=== PATIENT | female | born 1975 | race Caucasian/White ===

== ENCOUNTER 2019-03-03 22:53 | Emergency (ER) | payer OTHER ==
[~2019-03-03] VITALS: Ht 157.5 cm; Wt 80.7 kg
[2019-03-03 22:53] VITALS: BP 146/102
--- NOTE | 2019-03-03 22:53 | NUR ---
PT [facility]. TAKEN TO BED 6
--- NOTE | 2019-03-03 22:55 | NUR ---
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 EMS GAVE 324MG ASPIRIN PREHOSPTIAL. 10 PULSATING PAIN,NON-RADIATING. PT GRASPING LT BREAST. PT HYPERTENSIVE, BP 145/108. PT SEEN CRYING DUE TO PAIN. PT REPORTS PAIN DURING INHALATION AND EXPIRATION. HEART SOUNDS HAVE REGULAR RATE AND RHYMTM. O2 SATURATION AT 100% RA. PT ATTACHED TO MONITORING SYSTEM. BEDRAIL X2 UP. WILL CONTINUE TO MONITOR.
--- NOTE | 2019-03-03 23:04 | NUR ---
X-Ray at bedside.
[2019-03-03] MEDS ORDERED: NACL 0.9% 1,000 ML IV ONE (23:05)
--- NOTE | 2019-03-03 23:15 | NUR ---
BLOOD DRAWN AND TAKEN TO LAB.
[2019-03-03 23:23] LABS: BASOPHILS % (AUTO) 0.6 % (0.0-2.0); EOSINOPHILS # (AUTO) 0.2 K/uL (0-0.4); EOSINOPHILS % (AUTO) 3.2 % (0.0-4.0); HEMATOCRIT 30.8 % (36-48); HEMOGLOBIN 9.9 g/dL (12.0-16.0); LYMPHOCYTES # (AUTO) 2.9 K/uL (2.5-16.5); LYMPHOCYTES % (AUTO) 38.7 % (20.5-51.1); MEAN CORPUSCULAR HEMOGLOBIN 24 pg (27-31); MEAN CORPUSCULAR HGB CONC 32 g/dL (33-37); MEAN CORPUSCULAR VOLUME 73.4 fL (80-94); MONOCYTES # (AUTO) 0.7 K/uL (0.8-1.0); NEUTROPHILS # (AUTO) 3.6 K/uL (1.8-7.7); NEUTROPHILS % (AUTO) 48.5 % (42.2-75.2); PLATELET COUNT (AUTO) 274 K/uL (140-450); RED CELL DISTRIBUTION WIDTH 17.8 % (11.6-13.7); WHITE BLOOD COUNT (AUTO) 7.5 K/uL (4.8-10.8)
[2019-03-03 23:34] LABS: ANION GAP 13.8 (8-16); CARBON DIOXIDE 25.9 mmol/L (21-32); CREATININE 0.6 mg/dL (0.6-1.3); POTASSIUM 3.7 mmol/L (3.5-5.1)
[2019-03-03] MEDS ORDERED: MORPHINE SULFATE 2 MG/ML SYR IVP ONE (23:35)
[2019-03-03 23:40] LABS: ALBUMIN 3.4 g/dL (3.4-5.0); TOTAL BILIRUBIN 0.3 mg/dL (0.0-1.0)
--- NOTE | 2019-03-03 23:48 | NUR ---
PT AMBULATED TO THE RESTROOM. STEADY GAIT OBSERVED.
--- NOTE | 2019-03-04 00:12 | NUR ---
Dr. Angel examining patient.
[2019-03-04] MEDS ORDERED: LORazepam 2 MG/ML VIAL IVP ONE (00:15)
[2019-03-04 00:23] LABS: PROTHROMBIN TIME 9.3 secs (10.8-13.4)
[2019-03-04 00:40] VITALS: BP 121/77
--- NOTE | 2019-03-04 00:41 | NUR ---
PT LAYING IN BED, RR EVEN AND UNLABORED, PT CRYING AND MOANING INTERMITTENTLY BUT CONSOLABLE. REPORTS TOLERABLE PAIN. VSS. ALL NEEDS MET.
== END 2019-03-04 01:15 | disposition home or self-care (01) ==
LOC: MED 22:53
DX: R07.89 Other chest pain (principal); I48.91 Unspecified atrial fibrillation
CPT/HCPCS: 36415; 71045; 80053; 84484; 85025; 85610; 85730; 93005; 96374; 96375; 99284; J2060; J2270; J7030; Q0092

== ENCOUNTER 2021-10-16 09:26 | Observation (INO) | payer OTHER ==
[~2021-10-16] VITALS: Ht 153.7 cm; Wt 81.0 kg
[2021-10-16 09:28] VITALS: BP 126/72
--- NOTE | 2021-10-16 09:43 | NUR ---
PATIENT AMBULATED TO BED 4.
[2021-10-16] MEDS ORDERED: KETOROLAC 60 MG/2 ML VIAL IM ONE (10:10)
--- NOTE | 2021-10-16 10:15 | NUR ---
RADIOLOGY AT BEDSIDE.
[2021-10-16 10:42] LABS: BASOPHILS # (AUTO) 0.1 K/uL (0.00-0.22); EOSINOPHILS # (AUTO) 0.2 K/uL (0-0.4); LYMPHOCYTES # (AUTO) 1.9 K/uL (2.5-16.5); MEAN CORPUSCULAR VOLUME 59.6 fL (80-94); MONOCYTES % (AUTO) 10.4 % (1.7-9.3)
[2021-10-16 10:46] LABS: ANION GAP 9.3 (8-16); CARBON DIOXIDE 25.6 mmol/L (21-32); CREATININE 0.5 mg/dL (0.6-1.3); POTASSIUM 3.9 mmol/L (3.5-5.1)
[2021-10-16 11:06] LABS: BASOPHILS % (AUTO) 1.5 % (0.0-2.0); EOSINOPHILS % (AUTO) 4.5 % (0.0-4.0); HEMATOCRIT 23.6 % (36-48); LYMPHOCYTES % (AUTO) 35.4 % (20.5-51.1); MEAN CORPUSCULAR HEMOGLOBIN 18 pg (27-31); MEAN CORPUSCULAR HGB CONC 29 g/dL (33-37); MONOCYTES # (AUTO) 0.5 K/uL (0.8-1.0); NEUTROPHILS # (AUTO) 2.5 K/uL (1.8-7.7); NEUTROPHILS % (AUTO) 48.2 % (42.2-75.2); PLATELET COUNT (AUTO) 266 K/uL (140-450); RED BLOOD CELL COUNT(AUTO) 3.96 MIL/uL (4.20-5.40); RED CELL DISTRIBUTION WIDTH 20.7 % (11.6-13.7); WHITE BLOOD COUNT (AUTO) 5.2 K/uL (4.8-10.8)
[2021-10-16 11:10] LABS: HEMOGLOBIN 6.9 g/dL (12.0-16.0)
--- NOTE | 2021-10-16 11:43 | NUR ---
TITO SWAB SENT TO LAB
[2021-10-16 12:17] LABS: PROTHROMBIN TIME 9.3 secs (10.8-13.4)
[2021-10-16] MEDS ORDERED: MORPHINE SULFATE 4 MG/ML SYR IVP PRN (13:00)
[2021-10-16] MEDS ORDERED: MAGNESIUM OXIDE 400 MG TAB PO PRN (13:00)
[2021-10-16] MEDS ORDERED: HYDROcodone/APAP 5/325 MG 1 TAB TAB PO PRN (13:00)
[2021-10-16] MEDS ORDERED: ONDANSETRON 4 MG/2 ML VIAL IVP PRN (13:00)
[2021-10-16] MEDS ORDERED: KCL 20 MEQ/WATER INJ PREMIX 200 ML IV PRN (13:00)
[2021-10-16] MEDS ORDERED: ACETAMINOPHEN 325 MG TAB PO PRN (13:00)
[2021-10-16] MEDS ORDERED: MAG SULF 2000 MG/WATER PREMIX 50 ML IV PRN (13:00)
[2021-10-16] MEDS ORDERED: POTASSIUM CHLORIDE 10 MEQ TABER PO PRN (13:00)
--- NOTE | 2021-10-16 14:45 | NUR ---
Pt transferred to Tele via BED WITH AMINA REDMOND TO ROOM 120A.
[2021-10-16 16:20] VITALS: BP 139/84
[2021-10-16] MEDS ORDERED: hydrALAZINE 20 MG/ML VIAL IVP PRN (16:55)
--- NOTE | 2021-10-16 17:27 | NUR ---
STARTED BLOOD TRANSFUSION [id number]
[2021-10-16 20:00] VITALS: BP 109/52
[2021-10-17] VITALS: BP 136/84
[2021-10-17 04:00] VITALS: BP 100/69
[2021-10-17 05:28] LABS: BASOPHILS # (AUTO) 0.1 K/uL (0.00-0.22); BASOPHILS % (AUTO) 0.8 % (0.0-2.0); EOSINOPHILS # (AUTO) 0.1 K/uL (0-0.4); EOSINOPHILS % (AUTO) 1.7 % (0.0-4.0); HEMATOCRIT 26.2 % (36-48); HEMOGLOBIN 8.1 g/dL (12.0-16.0); LYMPHOCYTES # (AUTO) 1.3 K/uL (2.5-16.5); LYMPHOCYTES % (AUTO) 18.5 % (20.5-51.1); MEAN CORPUSCULAR HEMOGLOBIN 19 pg (27-31); MEAN CORPUSCULAR HGB CONC 31 g/dL (33-37); MEAN CORPUSCULAR VOLUME 61.4 fL (80-94); MONOCYTES # (AUTO) 0.6 K/uL (0.8-1.0); MONOCYTES % (AUTO) 8.3 % (1.7-9.3); NEUTROPHILS # (AUTO) 5.1 K/uL (1.8-7.7); NEUTROPHILS % (AUTO) 70.7 % (42.2-75.2); PLATELET COUNT (AUTO) 252 K/uL (140-450); RED BLOOD CELL COUNT(AUTO) 4.27 MIL/uL (4.20-5.40); RED CELL DISTRIBUTION WIDTH 23.2 % (11.6-13.7); WHITE BLOOD COUNT (AUTO) 7.3 K/uL (4.8-10.8)
[2021-10-17 05:42] LABS: ANION GAP 8.8 (8-16); CREATININE 0.5 mg/dL (0.6-1.3); MAGNESIUM 1.7 mg/dL (1.8-2.4); POTASSIUM 3.8 mmol/L (3.5-5.1); TOTAL BILIRUBIN 1.2 mg/dL (0.0-1.0)
[2021-10-17 07:52] VITALS: BP 112/61
--- NOTE | 2021-10-17 08:05 | NUR ---
PT IS AOX4, VSS NAD NOTED. PT AWARE OF POC, QUESTIONS/CONCERNS ANSWERED AND SAFETY MEASURES IN PLACE.
--- NOTE | 2021-10-17 09:12 | NUR ---
PATIENT HAS BEEN SCREENED AND CATEGORIZED LOW NUTRITION RISK. PATIENT WILL BE SEEN WITHIN 7 DAYS OF ADMISSION. 10/23/[address]
[2021-10-17] MEDS ORDERED: MORPHINE SULFATE 2 MG/ML SYR IVP PRN (09:45)
[2021-10-17 12:00] VITALS: BP 118/67
--- NOTE | 2021-10-17 14:45 | NUR ---
DC PLANNING: THE PATIENT PRESENTED FROM HOME WITH C/O LEFT UPPER BACK PAIN, WAS CONCERNED THAT IT MIGHT BE CARDIAC IN NATURE. H/O HTN AND A-FIB, DISCONTINUED BETA BLOCKERS FOR A-FIB BECAUSE IT DIDN'T REOCCUR. HGB 6.9, TROPONIN WNL'S, PATIENT BRADYCARDIC WITH HR IN THE 40'S. ORDER FOR CARDIOLOGY CONSULT AND ONE UNIT PRBC'S. CM WILL FOLLOW.
[2021-10-17 16:00] VITALS: BP 111/64
[2021-10-17] MEDS ORDERED: METO25TA PO (17:41)
[2021-10-17 17:45] VITALS: BP 123/89
--- NOTE | 2021-10-17 18:08 | NUR ---
DISCHARGE ORDER IN PLACE. WENT OVER DISCHARGE PAPERWORK WITH PT. ANSWERED ALL QUESTIONS. PT SIGNED ALL PAPERWORK. REMOVED IV. IV CATHETER INTACT. REMOVED WRISTBAND. PT WAITING FOR FAMILY TO PICK HER UP.
--- NOTE | 2021-10-17 18:22 | NUR ---
PT DISCHARGED HOME WITH FAMILY. ALL BELONGINGS TAKEN UPON DISCHARGE.
== END 2021-10-17 18:37 | disposition home or self-care (01) ==
LOC: MED 09:26 → MTU 13:03
PROVIDERS: ADMIT Internal Medicine; ATTEND Internal Medicine
DX: D50.9 Iron deficiency anemia, unspecified (principal); Z20.822 Contact with and (suspected) exposure to COVID-19; R07.89 Other chest pain; D25.9 Leiomyoma of uterus, unspecified; I10 Essential (primary) hypertension; M54.6 Pain in thoracic spine; G43.909 Migraine, unspecified, not intractable, without status migrainosus; I48.0 Paroxysmal atrial fibrillation; R00.1 Bradycardia, unspecified; E66.9 Obesity, unspecified; Z79.899 Other long term (current) drug therapy
CPT/HCPCS: 36415; 36430; 71045; 76856; 80048; 80053; 82728; 83540; 83735; 84484; 85025; 85610; 85730; 86886; 86900; 86901; 86920; 87081; 87426; 90472; 93005; 93976; 96374; 99285; G0378; J1885; J2270; J3475; P9016; Q0092; 96372

== ENCOUNTER 2023-02-24 20:09 | Emergency (ER) | payer OTHER ==
[~2023-02-24] VITALS: Ht 160 cm; Wt 81.6 kg
[~2023-02-24 20:09] MED LIST: METO25TA PO
[2023-02-24 20:10] VITALS: BP 150/90; PULSE 60; RESP 16; TEMP 97.8; O2SAT 98
[2023-02-24 21:43] VITALS: BP 142/88; PULSE 62; RESP 16; TEMP 97.8; O2SAT 98
== END 2023-02-24 21:43 | disposition home or self-care (01) ==
LOC: MED 20:09
DX: S71.132A Puncture wound without foreign body, left thigh, initial encounter (principal); W57.XXXA Bitten or stung by nonvenomous insect and other nonvenomous arthropods, initial encounter; Y93.89 Activity, other specified; Y92.89 Other specified places as the place of occurrence of the external cause; Y99.8 Other external cause status
CPT/HCPCS: 99281